=== PATIENT | female | born 1950 | race Asian ===

== ENCOUNTER 2016-09-10 19:42 | Emergency (ER) | payer OTHER ==
[~2016-09-10] VITALS: Ht 157.5 cm; Wt 78.9 kg
[~2016-09-10 19:42] MED LIST: CHLO10CA63 PO; CLEOCIN150 MG PO; LISI20TA11 PO; METOPROLOL25 M1 PO
[2016-09-10 23:05] LABS: PLATELET COUNT 281 K/uL (152-353)
[2016-09-10 23:20] LABS: POTASSIUM 3.7 mmol/L (3.6-5.2)
[2016-09-10 23:35] LABS: PARTIAL THROMBOPLASTIN TIME 24.4 SECONDS (24.5-33.6)
[2016-09-11 00:41] VITALS: BP 140/76; TEMP 98.2
== END 2016-09-11 00:42 | disposition home or self-care (01) ==
LOC: ED 19:42
PROVIDERS: Emergency Medicine
DX: K52.89 Other specified noninfective gastroenteritis and colitis (principal)
CPT/HCPCS: 36415; 80053; 81000; 82150; 82272; 83690; 85027; 85610; 85730; 99283; J1885

== ENCOUNTER 2016-10-13 15:39 | Outpatient (CLI) | payer OTHER | END 2016-10-13 22:08 | disposition home or self-care (01) | LOC: LABW 15:39 | DX: R19.7 Diarrhea, unspecified (principal); Z79.2 Long term (current) use of antibiotics | CPT/HCPCS: 82272; 87205; 87328; 87329; 87493 ==

== ENCOUNTER 2016-11-03 02:19 | Emergency (ER) | payer OTHER ==
[~2016-11-03] VITALS: Ht 157.5 cm; Wt 74.8 kg
[2016-11-03 02:30] VITALS: BP 189/99
[2016-11-03 03:14] LABS: PLATELET COUNT 256 K/uL (152-353)
[2016-11-03 03:29] LABS: SODIUM 141 mmol/L (136-145)
[2016-11-03 04:30] VITALS: TEMP 97.9
== END 2016-11-03 04:31 | disposition home or self-care (01) ==
LOC: ED 02:19
DX: K21.9 Gastro-esophageal reflux disease without esophagitis (principal); R07.89 Other chest pain
CPT/HCPCS: 80053; 82150; 82550; 83690; 84484; 85027; 86318; 93005; 99284

== ENCOUNTER 2016-12-27 15:06 | Outpatient (CLI) | payer OTHER | END 2016-12-27 19:15 | disposition home or self-care (01) | LOC: RAD 15:06 | DX: M25.512 Pain in left shoulder (principal); M25.511 Pain in right shoulder; M54.2 Cervicalgia; M79.642 Pain in left hand; M79.641 Pain in right hand; M25.522 Pain in left elbow; M25.521 Pain in right elbow ==

== ENCOUNTER 2017-01-18 16:15 | Outpatient (CLI) | payer OTHER | END 2017-01-18 17:30 | disposition home or self-care (01) | LOC: RESP 16:15 | DX: G56.03 Carpal tunnel syndrome, bilateral upper limbs (principal) | CPT/HCPCS: 95913 ==

== ENCOUNTER 2017-02-23 17:58 | Outpatient (CLI) | payer OTHER | END 2017-02-23 19:43 | disposition home or self-care (01) | LOC: LAB 17:58 | DX: N39.0 Urinary tract infection, site not specified (principal) | CPT/HCPCS: 81000; 87086; 87088 ==

== ENCOUNTER 2017-03-31 17:07 | Outpatient (CLI) | payer OTHER | END 2017-03-31 18:10 | disposition home or self-care (01) | LOC: LAB 17:07 | DX: N39.0 Urinary tract infection, site not specified (principal) | CPT/HCPCS: 87086; 87088 ==

== ENCOUNTER 2017-05-20 10:08 | Outpatient (CLI) | payer OTHER | END 2017-05-20 10:15 | disposition short-term general hospital (02) | LOC: AMB 10:08 | DX: M79.605 Pain in left leg (principal); W18.39XA Other fall on same level, initial encounter; Y92.098 Other place in other non-institutional residence as the place of occurrence of the external cause | CPT/HCPCS: A0425; A0429 ==

== ENCOUNTER 2017-05-20 10:15 | Emergency (ER) | payer OTHER ==
[~2017-05-20] VITALS: Ht 157.5 cm; Wt 76.7 kg
[2017-05-20 10:20] VITALS: BP 151/87; TEMP 97.6
== END 2017-05-20 12:50 | disposition home or self-care (01) ==
LOC: ED 10:15
DX: S86.812A Strain of other muscle(s) and tendon(s) at lower leg level, left leg, initial encounter (principal); W18.39XA Other fall on same level, initial encounter; Y92.098 Other place in other non-institutional residence as the place of occurrence of the external cause
CPT/HCPCS: 96372; 99282; J1885

== ENCOUNTER 2018-04-07 23:38 | Emergency (ER) | payer OTHER ==
[~2018-04-07] VITALS: Ht 157.5 cm; Wt 74.8 kg
[2018-04-08 01:44] VITALS: BP 142/78; TEMP 98.7
== END 2018-04-08 01:45 | disposition home or self-care (01) ==
LOC: ED 23:38
DX: R10.84 Generalized abdominal pain (principal)
CPT/HCPCS: 81000; 96372; 99282; J1885

== ENCOUNTER 2019-02-25 13:38 | Outpatient (CLI) | payer OTHER | END 2019-02-25 19:40 | disposition home or self-care (01) | LOC: RAD 13:38 | DX: M25.552 Pain in left hip (principal); M25.562 Pain in left knee ==

== ENCOUNTER 2019-04-17 12:13 | Emergency (ER) | payer OTHER ==
[~2019-04-17] VITALS: Ht 157.5 cm; Wt 74.8 kg
[2019-04-17 12:20] VITALS: TEMP 97.3
[2019-04-17 12:59] LABS: PLATELET COUNT 295 K/uL (152-353)
[2019-04-17 13:30] LABS: PARTIAL THROMBOPLASTIN TIME 24.5 SECONDS (24.5-33.6)
[2019-04-17 13:32] VITALS: BP 130/91
== END 2019-04-17 13:41 | disposition home or self-care (01) ==
LOC: ED 12:13
PROVIDERS: Hospitalist
DX: I10 Essential (primary) hypertension (principal); R11.0 Nausea
CPT/HCPCS: 80048; 85027; 85610; 85730; 93005; 96374; 96375; 99284; J2405

== ENCOUNTER 2019-04-28 12:40 | Emergency (ER) | payer OTHER ==
[~2019-04-28] VITALS: Ht 157.5 cm; Wt 74.8 kg
[2019-04-28 12:53] VITALS: TEMP 98.4
[2019-04-28 13:11] LABS: PLATELET COUNT 264 K/uL (152-353)
[2019-04-28 13:19] LABS: POTASSIUM 3.6 mmol/L (3.6-5.2)
[2019-04-28 13:37] LABS: PARTIAL THROMBOPLASTIN TIME 26.7 SECONDS (24.5-33.6)
[2019-04-28 17:25] VITALS: BP 153/77
== END 2019-04-28 17:26 | disposition home or self-care (01) ==
LOC: ED 12:40
PROVIDERS: Hospitalist
DX: K57.90 Diverticulosis of intestine, part unspecified, without perforation or abscess without bleeding (principal); R11.2 Nausea with vomiting, unspecified
CPT/HCPCS: 36415; 80053; 81000; 82150; 83690; 85027; 85610; 85730; 96360; 96361; 96375; 99284; J1885; J2270; J2405

== ENCOUNTER 2020-04-14 09:54 | Outpatient (CLI) | payer OTHER | END 2020-04-14 23:19 | disposition home or self-care (01) | LOC: LAB 09:54 | DX: R07.89 Other chest pain (principal); R06.02 Shortness of breath; F41.8 Other specified anxiety disorders | CPT/HCPCS: 87635; G2023; U0003 ==

== ENCOUNTER 2020-09-03 11:59 | Emergency (ER) | payer OTHER ==
[~2020-09-03] VITALS: Ht 157.5 cm; Wt 77.1 kg
[2020-09-03 12:36] VITALS: TEMP 98.3
[2020-09-03 15:14] VITALS: BP 187/82
== END 2020-09-03 15:15 | disposition home or self-care (01) ==
LOC: ED 11:59
DX: S63.591A Other specified sprain of right wrist, initial encounter (principal); W01.0XXA Fall on same level from slipping, tripping and stumbling without subsequent striking against object, initial encounter; Y92.89 Other specified places as the place of occurrence of the external cause
CPT/HCPCS: 96372; 99283; J1885

== ENCOUNTER 2021-02-20 08:39 | Emergency (ER) | payer OTHER ==
[~2021-02-20] VITALS: Ht 157.5 cm; Wt 78.9 kg
[2021-02-20 08:47] VITALS: BP 170/95; TEMP 97
[2021-02-20 10:01] LABS: PLATELET COUNT 271 K/uL (152-353)
[2021-02-20 10:11] LABS: POTASSIUM 3.9 mmol/L (3.6-5.2)
== END 2021-02-20 10:59 | disposition home or self-care (01) ==
LOC: ED 08:39
PROVIDERS: Family Medicine
DX: L29.8 Other pruritus (principal); N39.0 Urinary tract infection, site not specified; F41.1 Generalized anxiety disorder; Z79.899 Other long term (current) drug therapy
CPT/HCPCS: 36415; 80053; 80307; 81000; 85027; 87088; 99283

== ENCOUNTER 2021-04-04 12:49 | Emergency (ER) | payer OTHER ==
[~2021-04-04] VITALS: Ht 157.5 cm; Wt 74.8 kg
[2021-04-04 12:56] VITALS: TEMP 97.6
[2021-04-04 13:57] LABS: PLATELET COUNT 65 K/uL (152-353)
[2021-04-04 14:08] LABS: POTASSIUM 4.9 mmol/L (3.6-5.2); SODIUM 134 mmol/L (136-145)
[2021-04-04 14:09] LABS: PARTIAL THROMBOPLASTIN TIME 25.2 SECONDS (24.5-33.6)
[2021-04-04 14:51] VITALS: BP 145/80
== END 2021-04-04 15:31 | disposition home or self-care (01) ==
LOC: ED 12:49
PROVIDERS: Hospitalist
DX: R07.89 Other chest pain (principal); F41.8 Other specified anxiety disorders; Z20.822 Contact with and (suspected) exposure to COVID-19; R06.02 Shortness of breath
CPT/HCPCS: 36415; 80053; 81000; 82550; 82553; 83880; 84484; 85027; 85610; 85730; 87635; 93005; 99283; U0003

== ENCOUNTER 2021-05-30 00:22 | Emergency (ER) | payer OTHER ==
[~2021-05-30] VITALS: Ht 157.5 cm; Wt 76.2 kg
[2021-05-30 01:31] LABS: PLATELET COUNT 267 K/uL (152-353)
[2021-05-30 02:12] LABS: POTASSIUM 3.7 mmol/L (3.6-5.2)
[2021-05-30 05:00] VITALS: BP 144/71; TEMP 98
== END 2021-05-30 05:00 | disposition home or self-care (01) ==
LOC: ED 00:22
PROVIDERS: Emergency Medicine
DX: N39.0 Urinary tract infection, site not specified (principal); K59.09 Other constipation
CPT/HCPCS: 36415; 80053; 81000; 85027; 87086; 87088; 96365; 96366; 96375; 99284; J1885; J1956; J2405

== ENCOUNTER 2021-06-04 15:21 | Emergency (ER) | payer OTHER ==
[~2021-06-04] VITALS: Ht 157.5 cm; Wt 76.2 kg
[2021-06-04 17:05] LABS: PLATELET COUNT 288 K/uL (152-353)
[2021-06-04 17:18] LABS: POTASSIUM 4.1 mmol/L (3.6-5.2)
[2021-06-04 19:09] VITALS: BP 172/82; TEMP 97.9
== END 2021-06-04 19:09 | disposition home or self-care (01) ==
LOC: ED 15:21
PROVIDERS: Emergency Medicine Emergency Medical Services
DX: R10.33 Periumbilical pain (principal); R30.0 Dysuria
CPT/HCPCS: 36415; 80053; 83690; 85027; 96360; 96375; 99284; J1885; J2405

== ENCOUNTER 2021-07-02 13:51 | Emergency (ER) | payer OTHER ==
[~2021-07-02] VITALS: Ht 157.5 cm; Wt 76.2 kg
[2021-07-02 14:13] VITALS: BP 141/75; TEMP 98.1
[2021-07-02 16:43] LABS: PLATELET COUNT 305 K/uL (152-353)
[2021-07-02 16:50] LABS: POTASSIUM 3.7 mmol/L (3.6-5.2)
== END 2021-07-02 18:41 | disposition home or self-care (01) ==
LOC: ED 13:51
PROVIDERS: Emergency Medicine Emergency Medical Services
DX: R25.2 Cramp and spasm (principal)
CPT/HCPCS: 80053; 81000; 83735; 85027; 99284

== ENCOUNTER 2021-07-21 22:32 | Emergency (ER) | payer OTHER ==
[~2021-07-21] VITALS: Ht 157.5 cm; Wt 78.0 kg
[2021-07-21 23:32] LABS: PLATELET COUNT 279 K/uL (152-353)
[2021-07-21 23:37] LABS: POTASSIUM 3.4 mmol/L (3.6-5.2)
[2021-07-22 00:16] VITALS: BP 166/93; TEMP 98.7
== END 2021-07-22 00:16 | disposition home or self-care (01) ==
LOC: ED 22:32
PROVIDERS: Hospitalist
DX: R42 Dizziness and giddiness (principal); Z79.899 Other long term (current) drug therapy; Z51.81 Encounter for therapeutic drug level monitoring
CPT/HCPCS: 36415; 80053; 80320; 81000; 82550; 83880; 84484; 85027; 85610; 85730; 93005; 99283

== ENCOUNTER 2021-07-24 17:13 | Emergency (ER) | payer OTHER ==
[~2021-07-24] VITALS: Ht 157.5 cm; Wt 78.0 kg
[2021-07-24] MEDS ORDERED: METO-837 PO (17:36)
[2021-07-24] MEDS ORDERED: MECLIZINE25 MG PO (17:37)
[2021-07-24] MEDS ORDERED: ASPIRIN 8181 MG PO (17:39)
[2021-07-24] MEDS ORDERED: OLANZAPINE5 M1 PO (17:39)
[2021-07-24] MEDS ORDERED: HYDROXYZINE HYD25 MG PO (17:40)
[2021-07-24 17:58] LABS: PLATELET COUNT 288 K/uL (152-353)
[2021-07-24 18:02] LABS: POTASSIUM 3.7 mmol/L (3.6-5.2)
[2021-07-24 21:10] VITALS: BP 167/79; TEMP 98.1
== END 2021-07-24 21:10 | disposition home or self-care (01) ==
LOC: ED 17:13
PROVIDERS: Hospitalist
DX: N30.80 Other cystitis without hematuria (principal); N81.10 Cystocele, unspecified; F41.8 Other specified anxiety disorders
CPT/HCPCS: 80053; 81000; 83690; 85027; 96361; 96365; 96375; 99284; J1885; J1956; J2405

== ENCOUNTER 2021-07-25 01:21 | Emergency (ER) | payer OTHER ==
[~2021-07-25] VITALS: Ht 157.5 cm; Wt 78.5 kg
[~2021-07-25 01:21] MED LIST changes: +ASPIRIN 8181 MG PO; +HYDROXYZINE HYD25 MG PO; +MECLIZINE25 MG PO; +METO-837 PO; +OLANZAPINE5 M1 PO
[2021-07-25 02:35] VITALS: BP 148/70; TEMP 98.2
== END 2021-07-25 02:35 | disposition home or self-care (01) ==
LOC: ED 01:21
DX: F41.1 Generalized anxiety disorder (principal); E11.9 Type 2 diabetes mellitus without complications
CPT/HCPCS: 82948; 99282

== ENCOUNTER 2021-10-06 13:59 | Emergency (ER) | payer OTHER ==
[~2021-10-06] VITALS: Ht 157.5 cm; Wt 74.8 kg
[2021-10-06 14:06] VITALS: BP 118/64; TEMP 99.4
== END 2021-10-06 15:00 | disposition home or self-care (01) ==
LOC: ED 13:59
DX: J06.9 Acute upper respiratory infection, unspecified (principal); U07.1 COVID-19
CPT/HCPCS: 87502; 87635; 87651; 99283; U0003

== ENCOUNTER 2022-07-02 18:48 | Emergency (ER) | payer OTHER ==
[~2022-07-02] VITALS: Ht 157.5 cm; Wt 78.9 kg
[2022-07-02 19:00] VITALS: TEMP 98.5
[2022-07-02 19:32] LABS: PLATELET COUNT 281 K/uL (152-353)
[2022-07-02 19:39] LABS: POTASSIUM 3.5 mmol/L (3.6-5.2)
[2022-07-02 19:48] LABS: PARTIAL THROMBOPLASTIN TIME 29.9 SECONDS (24.5-33.6)
[2022-07-02 21:05] VITALS: BP 181/67
== END 2022-07-02 21:05 | disposition home or self-care (01) ==
LOC: ED 18:48
PROVIDERS: Emergency Medicine
DX: I10 Essential (primary) hypertension (principal); F41.8 Other specified anxiety disorders; R07.89 Other chest pain
CPT/HCPCS: 36415; 80053; 81002; 83880; 84484; 85027; 85610; 85730; 93005; 96374; 99284; J0360